=== PATIENT | female | born 1935 ===

== ENCOUNTER → 2018-11-14 | Outpatient (REF) | LOC: M LAB LCGH 15:45 | PROVIDERS: ATTEND Surgery | DX: K63.5 Polyp of colon (principal) ==

== ENCOUNTER → 2018-11-22 | Outpatient (REF) | payer MEDICARE, BC ==
[2018-11-22 15:34] LABS: FOLATE 19.2 NG/ML
[2018-11-29 00:14] LABS: CERULOPLASMIN 23.6 mg/dL (19.0-39.0); VITAMIN B1 LEVEL WHOLE BLOOD 72.9 nmol/L (66.5-200.0); VITAMIN B6,PYRIDOXAL PHOSPHATE 12.5 ug/L (2.0-32.8); VITAMIN E(ALPHA TOCOPHEROL) 6.9 mg/L (9.0-29.0); VITAMIN E(GAMMA TOCOPHEROL) 2.4 mg/L (0.5-4.9)
== END ==
LOC: M LABNEURO 10:38
PROVIDERS: ATTEND Psychiatry & Neurology Neurology
DX: E53.8 Deficiency of other specified B group vitamins (principal); E51.9 Thiamine deficiency, unspecified; E83.01 Wilson's disease; R26.89 Other abnormalities of gait and mobility